=== PATIENT | female | born 1950 ===

== ENCOUNTER 2018-06-28 09:49 | Outpatient (CLI) | payer OTHER ==
[~2018-06-28 09:49] MED LIST: OGEN1.5 MG PO; SYNTHROID75 MCG PO
== END 2018-06-28 09:58 | disposition home or self-care (01) ==
LOC: TOM 09:49
DX: N32.89 Other specified disorders of bladder (principal)
CPT/HCPCS: 72194; Q9965

== ENCOUNTER 2018-12-01 10:29 | Day surgery (SDC) | payer OTHER ==
[~2018-12-01 10:29] MED LIST changes: +AVAPRO75 MG PO; +SYNTH PO; +TOPROL XL25 M1 PO
== END 2018-12-01 17:45 | disposition home or self-care (01) ==
LOC: CIR.AMB 10:29
DX: D30.3 Benign neoplasm of bladder (principal)

== ENCOUNTER 2018-12-04 18:08 | Emergency (ER) | payer OTHER ==
[~2018-12-04] VITALS: Ht 170.2 cm; Wt 56.7 kg
== END 2018-12-04 22:46 | disposition home or self-care (01) ==
LOC: ER 18:08
DX: R33.8 Other retention of urine (principal); N39.0 Urinary tract infection, site not specified; R10.2 Pelvic and perineal pain

== ENCOUNTER 2018-12-06 10:25 | Outpatient (CLI) | payer OTHER | END 2018-12-06 10:33 | disposition home or self-care (01) | LOC: RX STUDY 10:25 | DX: Z48.816 Encounter for surgical aftercare following surgery on the genitourinary system (principal) | CPT/HCPCS: 51600; 74430; Q9958 ==

== ENCOUNTER 2025-11-04 13:52 | Inpatient (IN) | payer OTHER ==
[~2025-11-04] VITALS: Ht 152.4 cm; Wt 58.1 kg
[2025-11-04] MEDS ORDERED: TOPROL XL50 M1 PO (14:11)
[2025-11-04] MEDS ORDERED: CRESTOR40 MG PO (14:11)
[2025-11-04] MEDS ORDERED: AVAPRO150 MG PO (14:11)
[2025-11-04] MEDS ORDERED: MACROBID 100 M100 MG (14:12)
[2025-11-04] MEDS ORDERED: XANAX0.25 MG (14:12)
[2025-11-04] MEDS ORDERED: SYNTHROID137 MCG PO (14:13)
--- NOTE | 2025-11-04 14:13 | NUR ---
SE RECIBE PACIENTE FEMINA EN AMBULANCIA. SE EVALUA Y LA MISMA SE ENCUENTRA ALERTA Y ORIENTADA X3 QUIEN REFIERE QUE HACE VARIOS GIMENEZ FUE OPERADA DE LA [place] IZQUIERDA POR REPARACION DE MENISCOS Y LIGAMENTOS POR LA DELMA NIC STARKS. PACIENTE REFIERE QUE AUNDREA COMENZO A NOTAR LA MISMA CON INCHAZON Y CON PUS EN AREA DE SUTURA (SE OBSERVA LA MISMA CON EDEMA Y SUPURANDO). PACIENTE REFIERE AL MOMENTO DOLOR EN LA MISMA. SE MONITOREAN S/V Y SE UBICA PACIENTE.
[2025-11-04] MEDS ORDERED: MORPHINE SULFATE 2 MG/ML SYRINGE IV STA (14:49)
[2025-11-04] MEDS ORDERED: ONDANSETRON HCL 2 MG/ML VIAL IV STA (14:49)
[2025-11-04] MEDS ORDERED: 0.9 % SODIUM CHLORIDE 500 ML IV STA (14:50)
[2025-11-04] MEDS ORDERED: CLINDAMYCIN PHOSPHATE 150 MG/ML (600mg) IV STA (14:50)
[2025-11-04] MEDS ORDERED: METHYLPREDNISOLONE SOD SUCC 125 MG VIAL IV STA (14:51)
[2025-11-04] MEDS ORDERED: DIPHENHYDRAMINE HCL 50 MG/ML VIAL 1ML IV STA (14:52)
--- NOTE | 2025-11-04 16:14 | NUR ---
PTE EVALUADO POR DR. AL, PRESENTANDO CONPLICACION POR OPERACION EN [facility] [facility] MEDIDAS ASEPTICAS, MEDICACION ADMINISTRADA PENG ORDEN MEDICA Y SE ORIENTA SOBRE PROCEDIMIENTOS REALIZADOS Y PROCESO DE RE-EVALUACION MEDICA. CLIENTE ALERTTA Y ORIENTADO EDIL INTERVENCION POR PERSONAL RN.
[2025-11-04 16:22] LABS: BASO % 0.1 % (0.1-1.2); EOS # 0.03 (0.04-0.54); EOS % 0.3 % (0.7-7.0); LYMPH # 1.16 (1.18-3.74); LYMPH % 10.7 % (19.3-53.1); MEAN PLATELET VOLUME 9.70 fl (9.4-12.4); MONO # 1.22 (0.24-0.82); MONO % 11.2 % (4.7-12.5); NEUT # 8.41 (1.56-6.13); NEUT % 77.2 % (34.0-71.1); RED CELL DISTRIBUTION WIDTH 12.8 % (11.6-14.4)
[2025-11-04 16:35] LABS: ERYTHROCYTE SEDIMENTATION RATE 28 mm/hr (0-30)
[2025-11-04 17:00] LABS: INR 0.97
[2025-11-04 17:06] LABS: BUN CREA RATIO 32.0 (7.0-25.0); CREATININE SERUM 0.69 mg/dL (0.55-1.02); GFR 83.63; GLUCOSE FASTING 104.0 mg/dL (65-100); OSMOLALITY SERUM 287.0 MOSM/KG (275-295)
[2025-11-04] MEDS ORDERED: 0.9 % SODIUM CHLORIDE 1,000 ML IV SCH (20:45)
[2025-11-04] MEDS ORDERED: VANCOMYCIN HCL 1,000 MG VIAL IV SCH (20:51)
[2025-11-04] MEDS ORDERED: ENOXAPARIN SODIUM 40 MG/0.4 ML SYRINGE SUBCUTANEO SCH (20:53)
[2025-11-04] MEDS ORDERED: ACETAMINOPHEN 500 MG GEL..CAP PO PRN (21:00)
[2025-11-04] MEDS ORDERED: ONDANSETRON HCL 4 MG in 0.9 % SODIUM CHLORIDE 50 ML IV PRN (21:00)
[2025-11-04] MEDS ORDERED: CIPROFLOXACIN IN 5 % DEXTROSE 200 ML IV SCH (21:00)
[2025-11-05] MEDS ORDERED: LEVOTHYROXINE SODIUM 137 MCG TABLET PO SCH (06:00)
[2025-11-05] MEDS ORDERED: ROSUVASTATIN CALCIUM 20 MG TABLET PO SCH (09:00)
[2025-11-05] MEDS ORDERED: FAMOTIDINE/PF 20 MG in 0.9 % SODIUM CHLORIDE 8 ML IV PUSH SCH (09:00)
[2025-11-05] MEDS ORDERED: IRBESARTAN 75 MG TABLET PO SCH (09:00)
[2025-11-05] MEDS ORDERED: VANCOMYCIN HCL 1,000 MG VIAL IV SCH (09:00)
[2025-11-05] MEDS ORDERED: METOPROLOL SUCCINATE 50 MG TAB.SR.24H PO SCH (09:00)
[2025-11-05 09:50] VITALS: BP 143/70; O2SAT 96
[2025-11-05 11:01] LABS: URINE APPEARANCE Clear; URINE BILIRRUBIN Negative (NEGATIVE); URINE BLOOD Large; URINE COLOR Yellow; URINE GLUCOSE Negative (NEGATIVE); URINE KETONE Negative (NEGATIVE); URINE LEUKOCYTE Negative; URINE NITRATE Negative; URINE UROBILINOGEN 0.2 E.U./dl
[2025-11-05 11:05] LABS: URINE BACTERIA 57.1 uL (0.0-1933); URINE CAST 1.69 uL (0.0-1.40); URINE EPITHELIAL CELLS 5.3 uL (0.0-38.8); URINE RBC 29.4 uL (0.0-20.8); URINE WBC 15.7 uL (0.0-23.2)
[2025-11-05 11:10] LABS: URINE PROTEIN 300 (NEGATIVE)
[2025-11-05] MEDS ORDERED: BACITRACIN-NEOMYCIN-POLYMYXIN 0.9 GM PACKET TOP ONE (13:15)
[2025-11-05] MEDS ORDERED: BUPIVACAINE HCL 30 ML VIAL IJ ONE (13:15)
[2025-11-05] MEDS ORDERED: POVIDONE-IODINE 118 ML BOTT TOP ONE (13:15)
[2025-11-05] MEDS ORDERED: LIDOCAINE HCL 1%/EPINEPHRINE 20ML VIAL IJ ONE (13:15)
[2025-11-05] MEDS ORDERED: VANCOMYCIN HCL 1,000 MG VIAL IR ONE (13:15)
[2025-11-05] MEDS ORDERED: METHYLPREDNISOLONE ACETATE 80 MG/ML VIAL IM ONE (13:15)
[2025-11-05 14:23] VITALS: BP 167/81; O2SAT 93
[2025-11-05] MEDS ORDERED: KETOROLAC TROMETHAMINE 30 MG VIAL IV SCH (17:00)
[2025-11-05] MEDS ORDERED: MORPHINE SULFATE 4 MG/ML CARTRIDGE IV SCH (18:00)
[2025-11-05] MEDS ORDERED: PIPERACILLIN/TAZOBACTAM SODIUM 3.375 GM in DEXTROSE 5 % IN WATER 100 ML IV SCH (18:00)
[2025-11-05 18:44] VITALS: BP 159/73
[2025-11-06 03:01] VITALS: BP 140/67; O2SAT 96
[2025-11-06 08:37] VITALS: BP 150/74; O2SAT 96
[2025-11-06 18:25] VITALS: BP 134/76; O2SAT 100
[2025-11-07] VITALS: BP 143/84; O2SAT 96
[2025-11-07 08:53] VITALS: BP 146/68; O2SAT 97
[2025-11-07] MEDS ORDERED: CHLORHEXIDINE GLUCONATE 240 ML BOTTLE TOP SCH (09:00)
[2025-11-07] MEDS ORDERED: OSELTAMIVIR PHOSPHATE 6 MG/1 ML PO SCH (09:00)
[2025-11-07] MEDS ORDERED: MUPIROCIN 15 GM OINT..GM TUBE NASAL SCH (09:00)
[2025-11-07 19:13] VITALS: BP 151/78; O2SAT 97
[2025-11-08] VITALS: BP 147/74; O2SAT 96
[2025-11-08 09:50] VITALS: BP 124/63; O2SAT 96
== END 2025-11-08 14:58 | disposition home or self-care (01) | DRG 857 ==
LOC: ER 13:52 → MEDI 21:10
PROVIDERS: General Practice; Orthopaedic Surgery; ADMIT Internal Medicine; ATTEND Internal Medicine
PROC: BQ28ZZZ Computerized Tomography (CT Scan) of Left Knee (ICD-10-PCS; 2025-11-04)
PROC: 0SBD4ZZ Excision of Left Knee Joint, Percutaneous Endoscopic Approach (ICD-10-PCS; principal; 2025-11-05 09:00)
PROC: 8E0ZXY6 Isolation (ICD-10-PCS; 2025-11-06)
PROC: 02HV33Z Insertion of Infusion Device into Superior Vena Cava, Percutaneous Approach (ICD-10-PCS; 2025-11-07)
DX: T81.49XA Infection following a procedure, other surgical site, initial encounter (principal); M00.09 Staphylococcal polyarthritis; N39.0 Urinary tract infection, site not specified; M00.862 Arthritis due to other bacteria, left knee; M65.862 Other synovitis and tenosynovitis, left lower leg; M17.12 Unilateral primary osteoarthritis, left knee; M65.162 Other infective (teno)synovitis, left knee; D72.828 Other elevated white blood cell count; E03.9 Hypothyroidism, unspecified; I10 Essential (primary) hypertension; E78.49 Other hyperlipidemia; L08.89 Other specified local infections of the skin and subcutaneous tissue